=== PATIENT | female | born 1955 | race African-American/Black ===

== ENCOUNTER 2017-09-01 22:50 | Emergency (ER) | payer SELFPAY ==
[2017-09-01 23:08] LABS: BASOPHILS 0.5 % (0-2); EOSINOPHILS 4.8 % (0-7); HEMATOCRIT 34.5 % (36.0-48.0); HEMOGLOBIN 11.3 g/dL (12-16); IMMATURE GRANULOCYTES 0.1 % (0-5); LYMPHOCYTES 42.2 % (15-50); MCH 29.1 pg (26.0-34.0); MCHC 32.8 g/dL (31.0-37.0); MCV 88.9 fL (80.0-100.0); MEAN PLATELET VOLUME 10.1 fL (7.4-10.4); MONOCYTES 6.4 % (2-11); PLATELET COUNT 262 10x3/uL (130-400); RBC 3.88 10x6/uL (4.00-5.40); RDW 13.5 % (11.5-14.5)
[2017-09-01 23:19] LABS: ALBUMIN 4.1 g/dL (3.4-5.0); ALKALINE PHOSPHATASE 141 U/L (46-116); ALT (SGPT) 24 U/L (10-68); BILIRUBIN - TOTAL 0.16 mg/dL (0.2-1.3); CALC OSMOLALITY 287 mosm/kg (275-300); CALCIUM 9.4 mg/dL (8.5-10.1); CARBON DIOXIDE 30.2 mmol/L (21.0-32.0); CHLORIDE - SERUM 101 mmol/L (98-107); CREATININE - SERUM 0.9 mg/dL (0.6-1.3); GLUCOSE 315 mg/dL (74-106); POTASSIUM - SERUM 3.7 mmol/L (3.5-5.1); SODIUM 137 mmol/L (136-145); UREA NITROGEN 17 mg/dL (7-18); eGFR NON AFRICAN AMERICAN 67 mL/min (90-120)
[2017-09-01 23:30] LABS: CHOL - HDL RATIO 2.1 ratio (2.3-4.1); CHOLESTEROL, TOTAL 169 mg/dL (0-200); CKMB 0.6 U/L (0.0-3.6); CREATINE KINASE 125 UL (21-215); HDL CHOLESTEROL 81 mg/dL (32-96); LDL CHOLESTEROL 80 mg/dL (0-100); TRIGLYCERIDE 43 mg/dL (30-200); TROPONIN-I < 0.017 ng/mL (0.000-0.060)
== END 2017-09-01 23:42 | disposition home or self-care (01) ==
LOC: D.ER 22:50
PROVIDERS: Family Medicine
DX: R07.89 Other chest pain (principal); E11.9 Type 2 diabetes mellitus without complications

== ENCOUNTER 2019-06-28 09:54 | Emergency (ER) | payer MEDICARE, MEDICAID ==
[~2019-06-28] VITALS: Ht 162.6 cm; Wt 69.5 kg
[2019-06-28 10:01] VITALS: Ht 162.6 cm; Wt 69.5 kg
[2019-06-28] MEDS ORDERED: TRULICITY0.75 MG/0. (10:02)
[2019-06-28 10:45] LABS: BASOPHILS 0.5 % (0-2); EOSINOPHILS 4.9 % (0-7); HEMATOCRIT 33.7 % (36.0-48.0); HEMOGLOBIN 10.9 g/dL (12-16); IMMATURE GRANULOCYTES 0.2 % (0-5); LYMPHOCYTES 33.9 % (15-50); MCH 29.6 pg (26.0-34.0); MCHC 32.3 g/dL (31.0-37.0); MCV 91.6 fL (80.0-100.0); MEAN PLATELET VOLUME 9.3 fL (7.4-10.4); MONOCYTES 6.6 % (2-11); NEUTROPHILS 53.9 % (40-80); PLATELET COUNT 255 10x3/uL (130-400); RBC 3.68 10x6/uL (4.00-5.40); RDW 13.2 % (11.5-14.5); WBC 6.4 10x3/uL (4.8-10.8)
[2019-06-28 10:52] LABS: CALC OSMOLALITY 278 mosm/kg (275-300); CALCIUM 9.2 mg/dL (8.5-10.1); CHLORIDE - SERUM 107 mmol/L (98-107); CREATININE - SERUM 0.8 mg/dL (0.6-1.3); POTASSIUM - SERUM 4.8 mmol/L (3.5-5.1); SODIUM 140 mmol/L (136-145); UREA NITROGEN 12 mg/dL (7-18); eGFR NON AFRICAN AMERICAN 76 mL/min (90-120)
[2019-06-28 11:01] LABS: GLUCOSE 106 mg/dL (74-106)
[2019-06-28 11:06] LABS: ALBUMIN 3.9 g/dL (3.4-5.0); ALKALINE PHOSPHATASE 87 U/L (46-116); ALT (SGPT) 25 U/L (10-68); BILIRUBIN - TOTAL 0.33 mg/dL (0.2-1.3); CREATINE KINASE 119 UL (21-215); PROTEIN - SERUM 7.7 g/dL (6.4-8.2); THYROID STIMULATING HORMONE 9.09 uIU/mL (0.36-3.74)
[2019-06-28 11:08] LABS: TROPONIN-I < 0.017 ng/mL (0.000-0.060)
[2019-06-28] MEDS ORDERED: SYNTHROID50 MCG PO (11:11)
[2019-06-28] MEDS ORDERED: NAPROSYN500 MG PO (11:20)
[2019-06-28 11:33] VITALS: BP 129/68
== END 2019-06-28 11:33 | disposition home or self-care (01) ==
LOC: D.ER 09:54
PROVIDERS: Emergency Medicine
DX: E03.9 Hypothyroidism, unspecified (principal); M54.12 Radiculopathy, cervical region; E11.9 Type 2 diabetes mellitus without complications